=== PATIENT | female | born 1945 | race Caucasian/White ===

== ENCOUNTER 2019-02-09 03:16 | Outpatient (CLI) | payer MEDICARE | END 2019-02-09 23:59 | disposition home or self-care (01) | LOC: RT 03:16 | PROVIDERS: ATTEND Family Medicine | DX: J43.9 Emphysema, unspecified (principal); E78.5 Hyperlipidemia, unspecified; I48.91 Unspecified atrial fibrillation; K21.9 Gastro-esophageal reflux disease without esophagitis; I11.0 Hypertensive heart disease with heart failure; I50.9 Heart failure, unspecified; G30.9 Alzheimer's disease, unspecified; E07.89 Other specified disorders of thyroid; M81.0 Age-related osteoporosis without current pathological fracture; F32.9 Major depressive disorder, single episode, unspecified; F41.9 Anxiety disorder, unspecified; F02.80 Dementia in other diseases classified elsewhere, unspecified severity, without behavioral disturbance, psychotic disturbance, mood disturbance, and anxiety; F17.210 Nicotine dependence, cigarettes, uncomplicated; Z86.718 Personal history of other venous thrombosis and embolism; Z86.73 Personal history of transient ischemic attack (TIA), and cerebral infarction without residual deficits; Z79.899 Other long term (current) drug therapy; Z88.0 Allergy status to penicillin; Z88.5 Allergy status to narcotic agent; Z88.8 Allergy status to other drugs, medicaments and biological substances | CPT/HCPCS: 94618 ==

== ENCOUNTER 2019-03-11 11:29 | Outpatient (CLI) | payer MEDICARE, MEDICAID ==
[2019-03-11] VITALS (24 sets, daily range): BP systolic 115–177; BP diastolic 55–76
== END 2019-03-11 23:59 | disposition home or self-care (01) ==
LOC: CARD DIAG 11:29
PROVIDERS: ATTEND Internal Medicine Cardiovascular Disease
DX: R42 Dizziness and giddiness (principal)
CPT/HCPCS: 93660

== ENCOUNTER 2019-04-15 09:26 | Outpatient (CLI) | payer MEDICARE, MEDICAID ==
[2019-04-15 10:08] LABS: CLARITY,URINE CLOUDY (Clear); COLOR,URINE YELLOW (Yellow); GLUCOSE, URINE NEGATIVE (Neg); KETONES,URINE NEGATIVE (Neg); LEUKOCYTE ESTERASE ,URINE NEGATIVE (Neg); NITRITES, URINE NEGATIVE (Neg); OCCULT BLOOD,URINE NEGATIVE (Neg); PROTEIN,URINE NEGATIVE (Neg)
[2019-04-15 10:10] LABS: BASOPHILS # (AUTO) 0.1 X10'3 (0-0.2); EOSINOPHILS # (AUTO) 0.2 X10'3 (0-0.9); EOSINOPHILS % (AUTO) 3.3 % (0-6); HEMOGLOBIN 14.3 g/dl (12.0-16.0); LYMPHOCYTES # (AUTO) 1.9 X10'3 (1.1-4.8); LYMPHOCYTES % (AUTO) 29.9 % (21-51); MEAN CORPUSCULAR HEMOGLOBIN 29.1 PG (27.0-31.0); MEAN CORPUSCULAR HGB CONC 33.1 g/dL (33.0-36.5); MEAN CORPUSCULAR VOLUME 87.9 FL (78-98); MEAN PLATELET VOLUME 8.1 FL (7.4-10.4); MONOCYTES # (AUTO) 0.4 X10'3 (0-0.9); MONOCYTES % (AUTO) 6.9 % (2-12); NEUTROPHILS # (AUTO) 3.8 X10'3 (1.8-7.7); NEUTROPHILS % (AUTO) 58.9 % (42-75); PLATELET COUNT 246 X10'3 (140-440); RED BLOOD COUNT 4.89 X10'6 (4.20-5.60); RED CELL DISTRIBUTION WIDTH 15.6 % (11.5-14.5); WHITE BLOOD COUNT 6.5 X10'3 (4.5-11.0)
[2019-04-15 10:12] LABS: UA COLLECTION TYPE CLN CATCH MIDSTREAM
[2019-04-15 10:14] LABS: WBC,URINE 0-4 /HPF (0-4)
[2019-04-15 10:16] LABS: BACTERIA,URINE 1+ /HPF (Neg); MUCUS STRANDS MANY /LPF (Neg); RBC,URINE NONE SEEN /HPF (0-2); SQUAMOUS EPITHELIAL CELL,UR MANY /LPF (FEW); YEAST FEW /HPF (NEGATIVE)
[2019-04-15 10:27] LABS: ALANINE AMINOTRANSFERASE 26 U/L (12-78); ALBUMIN 3.6 G/DL (3.4-5.0); ALBUMIN/GLOBULIN RATIO 1.1 (1.1-1.5); ALKALINE PHOSPHATASE 67 IU/L (46-116); ANION GAP 4 (8-16); ASPARTATE AMINO TRANSFERASE 15 U/L (10-37); BILIRUBIN,TOTAL 0.7 MG/DL (0.1-1.0); BLOOD UREA NITROGEN 15 MG/DL (7-18); BUN/CREATININE RATIO 15.3 (6.6-38.0); CALCIUM 9.2 MG/DL (8.5-10.1); CHLORIDE 107 MMOL/L (99-107); CHOLESTEROL 151 MG/DL (0-200); CREATININE 0.98 MG/DL (0.40-0.90); GLUCOSE 98 MG/DL (70-104); HDL CHOLESTEROL 75 MG/DL (35-60); LDL CHOLESTEROL 63 MG/DL (50-100); POTASSIUM 3.9 MMOL/L (3.5-5.1); SODIUM 147 MMOL/L (135-145); TOTAL CARBON DIOXIDE 36.3 MMOL/L (24-32); TOTAL PROTEIN 6.9 G/DL (6.4-8.2); TRIGLYCERIDES 100 MG/DL (20-135); eGFR 55 ML/MIN
== END 2019-04-15 23:59 | disposition home or self-care (01) ==
LOC: LAB 09:26
PROVIDERS: ATTEND Family Medicine
DX: K58.0 Irritable bowel syndrome with diarrhea (principal); G89.29 Other chronic pain; M54.5 Low back pain; J44.9 Chronic obstructive pulmonary disease, unspecified; G45.9 Transient cerebral ischemic attack, unspecified; K21.9 Gastro-esophageal reflux disease without esophagitis
CPT/HCPCS: 36415; 80053; 80061; 81001; 84439; 84443; 85025

== ENCOUNTER 2019-08-06 11:27 | Outpatient (CLI) | payer MEDICARE, MEDICAID | END 2019-08-06 23:59 | disposition home or self-care (01) | LOC: RAD 11:27 | PROVIDERS: ATTEND Family Medicine | DX: K59.00 Constipation, unspecified (principal); R10.11 Right upper quadrant pain; R19.00 Intra-abdominal and pelvic swelling, mass and lump, unspecified site; Z90.49 Acquired absence of other specified parts of digestive tract | CPT/HCPCS: 76700 ==

== ENCOUNTER 2020-02-02 08:13 | Day surgery (SDC) | payer MEDICARE, MEDICAID ==
[2020-02-01 10:29] LABS: BASOPHILS # (AUTO) 0.1 X10'3 (0-0.2); BASOPHILS % (AUTO) 1.2 % (0-1); EOSINOPHILS # (AUTO) 0.2 X10'3 (0-0.9); EOSINOPHILS % (AUTO) 2.8 % (0-6); HEMOGLOBIN 13.1 g/dl (12.0-16.0); LYMPHOCYTES # (AUTO) 1.7 X10'3 (1.1-4.8); LYMPHOCYTES % (AUTO) 28.6 % (21-51); MEAN CORPUSCULAR HEMOGLOBIN 29.6 PG (27.0-31.0); MEAN CORPUSCULAR HGB CONC 32.6 g/dL (33.0-36.5); MEAN CORPUSCULAR VOLUME 90.6 FL (78-98); MEAN PLATELET VOLUME 7.9 FL (7.4-10.4); MONOCYTES # (AUTO) 0.5 X10'3 (0-0.9); MONOCYTES % (AUTO) 7.7 % (2-12); NEUTROPHILS # (AUTO) 3.6 X10'3 (1.8-7.7); NEUTROPHILS % (AUTO) 59.7 % (42-75); PLATELET COUNT 189 X10'3 (140-440); RED BLOOD COUNT 4.42 X10'6 (4.20-5.60); RED CELL DISTRIBUTION WIDTH 14.6 % (11.5-14.5)
[2020-02-01 10:35] LABS: ALBUMIN 3.3 G/DL (3.4-5.0); ANION GAP 2 (8-16); BLOOD UREA NITROGEN 12 MG/DL (7-18); BUN/CREATININE RATIO 15.2 (6.6-38.0); CALCIUM 8.7 MG/DL (8.5-10.1); CHLORIDE 105 MMOL/L (99-107); CREATININE 0.79 MG/DL (0.40-0.90); GLUCOSE 106 MG/DL (70-104); POTASSIUM 3.8 MMOL/L (3.5-5.1); SODIUM 142 MMOL/L (135-145); TOTAL CARBON DIOXIDE 34.6 MMOL/L (24-32); eGFR 71 ML/MIN
[2020-02-01 10:39] LABS: PARTIAL THROMBOPLASTIN TIME 25 SECONDS (22-32)
[~2020-02-02] VITALS: Ht 154.9 cm; Wt 81.0 kg
[2020-02-02] VITALS (11 sets, daily range): BP systolic 123–165; BP diastolic 52–84
[2020-02-02] MEDS ORDERED: normal saline 1,000 ML IV SCH (08:45)
[2020-02-02] MEDS ORDERED: vancomycin/NS 1 GM ADD-VANTAGE 250 ML X 1 DOSE IV ONE (08:50)
[2020-02-02] MEDS ORDERED: CLINDAMYCIN/D5W 900mg/50ml 50 ML IV ONE (08:50)
[2020-02-02] MEDS ORDERED: LACT1CAP65 PO (10:33)
[2020-02-02] MEDS ORDERED: DULO60CA45 PO (10:33)
[2020-02-02] MEDS ORDERED: [UNRECOGNIZED DRUG - CODE] PO (10:33)
[2020-02-02] MEDS ORDERED: UMEC1DIS INH (10:33)
[2020-02-02] MEDS ORDERED: OXYC-150 PO (10:33)
[2020-02-02] MEDS ORDERED: LEVO25TA7 PO (10:33)
[2020-02-02] MEDS ORDERED: DONE10TA44 PO (10:33)
[2020-02-02] MEDS ORDERED: BUSP10TA10 PO (10:33)
[2020-02-02] MEDS ORDERED: GABA300C PO (10:33)
[2020-02-02] MEDS ORDERED: DONE10TA7 PO (10:33)
[2020-02-02] MEDS ORDERED: LOPE2CAP PO (10:33)
[2020-02-02] MEDS ORDERED: BUDE0.5A3 NEB (10:33)
[2020-02-02] MEDS ORDERED: PANT-47 PO (10:33)
[2020-02-02] MEDS ORDERED: CLOP75TA33 PO (10:33)
[2020-02-02] MEDS ORDERED: ATOR40TA71 PO (10:33)
[2020-02-02] MEDS ORDERED: DICY20TA11 PO (10:33)
[2020-02-02] MEDS ORDERED: PRED5TAB PO (10:33)
[2020-02-02] MEDS ORDERED: MEMA10TA PO (10:33)
[2020-02-02] MEDS ORDERED: AMLO5TAB PO (10:33)
[2020-02-02] MEDS ORDERED: LISI10TA PO (10:33)
[2020-02-02] MEDS ORDERED: ALBU18HF2 IH (10:33)
[2020-02-02] MEDS ORDERED: MAGN400T52 PO (10:33)
[2020-02-02] MEDS ORDERED: midazolam 2 mg/2 ml injection ONE ×2 (13:16→13:53)
[2020-02-02] MEDS ORDERED: ceFAZolin/D5W- 1GM premix 50 ML IV ONE (13:16)
[2020-02-02] MEDS ORDERED: fentaNYL/PF 50MCG/1 ML 2ML syringe ONE ×2 (13:16→14:06)
[2020-02-02] MEDS ORDERED: clindamycin phosphate 150mg/ml inj. ONE (13:19)
[2020-02-02] MEDS ORDERED: LIDOcaine 1% W/epiNEPHrine 1:100,000 20ml vial ONE ×2 (13:23→13:59)
[2020-02-02] MEDS ORDERED: normal saline 1,000 ML IV ONE (15:53)
[2020-02-02] MEDS ORDERED: HYDROcodone/acetaminophen 10/325mg tab PO PRN (15:55)
[2020-02-02] MEDS ORDERED: HYDROcodone/acetaminophen 5mg/325mg tablet PO PRN (15:55)
== END 2020-02-02 19:30 | disposition home or self-care (01) ==
LOC: SSTAY O 08:13
PROVIDERS: ATTEND Internal Medicine Cardiovascular Disease
DX: I49.5 Sick sinus syndrome (principal); I50.9 Heart failure, unspecified; I11.0 Hypertensive heart disease with heart failure; E78.5 Hyperlipidemia, unspecified; G47.30 Sleep apnea, unspecified; I48.0 Paroxysmal atrial fibrillation; F32.9 Major depressive disorder, single episode, unspecified; F41.9 Anxiety disorder, unspecified; E03.9 Hypothyroidism, unspecified; F03.90 Unspecified dementia, unspecified severity, without behavioral disturbance, psychotic disturbance, mood disturbance, and anxiety; M13.88 Other specified arthritis, other site; J44.9 Chronic obstructive pulmonary disease, unspecified; Z79.899 Other long term (current) drug therapy; Z86.73 Personal history of transient ischemic attack (TIA), and cerebral infarction without residual deficits; Z86.718 Personal history of other venous thrombosis and embolism; Z98.890 Other specified postprocedural states; Z90.49 Acquired absence of other specified parts of digestive tract; Z98.51 Tubal ligation status; Z87.891 Personal history of nicotine dependence; Z88.0 Allergy status to penicillin; Z88.8 Allergy status to other drugs, medicaments and biological substances; Z88.5 Allergy status to narcotic agent
CPT/HCPCS: 33208; 33286; 36415; 71046; 80048; 85025; 85610; 85730; 93005; 99152; 99153; C1785; C1894; C1898; J0690; J2250; J3010; J3490; A4565; A4620; A6258; A6449

== ENCOUNTER 2020-02-29 15:20 | Outpatient (CLI) | payer MEDICARE, MEDICAID ==
[~2020-02-29 15:20] MED LIST: ALBU18HF2 IH; AMLO5TAB PO; ATOR40TA71 PO; BUDE0.5A3 NEB; BUSP10TA10 PO; CLOP75TA33 PO; DICY20TA11 PO; DONE10TA44 PO; DONE10TA7 PO; DULO60CA45 PO; GABA300C PO; LACT1CAP65 PO; LEVO25TA7 PO; LISI10TA PO; LOPE2CAP PO; MAGN400T52 PO; MEMA10TA PO; OXYC-150 PO; PANT-47 PO; PRED5TAB PO; UMEC1DIS INH; [UNRECOGNIZED DRUG - CODE] PO
== END 2020-02-29 23:59 | disposition home or self-care (01) ==
LOC: RAD 15:20
PROVIDERS: ATTEND Internal Medicine Cardiovascular Disease
DX: I50.22 Chronic systolic (congestive) heart failure (principal)
CPT/HCPCS: 71046

== ENCOUNTER 2020-10-23 18:22 | Emergency (ER) | payer MEDICARE, MEDICAID ==
[~2020-10-23] VITALS: Ht 154.9 cm; Wt 83.2 kg
[2020-10-23 19:06] LABS: BASOPHILS % (AUTO) 0.3 % (0-1); EOSINOPHILS % (AUTO) 0 % (0-6); HEMATOCRIT 40.4 % (35.0-45.0); HEMOGLOBIN 13.3 g/dl (12.0-16.0); LYMPHOCYTES # (AUTO) 0.4 X10'3 (1.1-4.8); LYMPHOCYTES % (AUTO) 10.4 % (21-51); MEAN CORPUSCULAR HEMOGLOBIN 30.7 PG (27.0-31.0); MEAN PLATELET VOLUME 8.6 FL (7.4-10.4); MONOCYTES # (AUTO) 0.1 X10'3 (0-0.9); MONOCYTES % (AUTO) 1.3 % (2-12); NEUTROPHILS # (AUTO) 3.6 X10'3 (1.8-7.7); PLATELET COUNT 221 X10'3 (140-440); RED BLOOD COUNT 4.35 X10'6 (4.20-5.60); RED CELL DISTRIBUTION WIDTH 14.1 % (11.5-14.5); WHITE BLOOD COUNT 4.1 X10'3 (4.5-11.0)
[2020-10-23 19:08] LABS: PARTIAL THROMBOPLASTIN TIME 25 SECONDS (22-32)
[2020-10-23 19:11] LABS: ALANINE AMINOTRANSFERASE 61 U/L (12-78); ALBUMIN 3.9 G/DL (3.4-5.0); ALBUMIN/GLOBULIN RATIO 1.2 (1.1-1.5); ALKALINE PHOSPHATASE 84 IU/L (46-116); ANION GAP 12 (8-16); ASPARTATE AMINO TRANSFERASE 26 U/L (10-37); BILIRUBIN,TOTAL 0.6 MG/DL (0.1-1.0); BLOOD UREA NITROGEN 19 MG/DL (7-18); BUN/CREATININE RATIO 15.8 (6.6-38.0); CALCIUM 9.5 MG/DL (8.5-10.1); CHLORIDE 103 MMOL/L (99-107); GLUCOSE 194 MG/DL (70-104); SODIUM 146 MMOL/L (135-145); TOTAL CARBON DIOXIDE 31.4 MMOL/L (24-32); TOTAL PROTEIN 7.2 G/DL (6.4-8.2); eGFR 44 ML/MIN
[2020-10-23 19:14] LABS: TROPONIN I < 0.04 NG/ML (0.0-0.05)
--- NOTE | 2020-10-23 20:35 | NUR ---
PT AMBULATED TO RESTROOM AND BACK TO BED USING FWW WITHOUT ASSIST
[2020-10-23 21:03] LABS: CLARITY,URINE SLIGHTLY CLOUDY (Clear); COLOR,URINE YELLOW (Yellow); GLUCOSE, URINE NEGATIVE (Neg); KETONES,URINE NEGATIVE (Neg); LEUKOCYTE ESTERASE ,URINE MODERATE (Neg); NITRITES, URINE NEGATIVE (Neg); OCCULT BLOOD,URINE TRACE-INTACT (Neg); PROTEIN,URINE NEGATIVE (Neg); UROBILINOGEN,URINE 0.2 E.U/dL (0.2-1.0)
[2020-10-23 21:06] LABS: UA COLLECTION TYPE CLN CATCH MIDSTREAM
[2020-10-23 21:11] LABS: BACTERIA,URINE 3+ /HPF (Neg); MUCUS STRANDS MANY /LPF (Neg); SQUAMOUS EPITHELIAL CELL,UR FEW /LPF (FEW); WBC,URINE TNTC /HPF (0-4)
[2020-10-23 21:12] LABS: TRANSITIONAL EPI CELLS,URINE FEW /HPF
[2020-10-23] MEDS ORDERED: cephalexin 500mg capsule PO ONE (21:50)
[2020-10-23] MEDS ORDERED: CEPH-585 PO (21:52)
[2020-10-23 22:08] VITALS: BP 160/88
== END 2020-10-23 22:11 | disposition home or self-care (01) ==
LOC: ER 18:24
DX: N39.0 Urinary tract infection, site not specified (principal); R25.1 Tremor, unspecified; R30.0 Dysuria; Q89.8 Other specified congenital malformations; I10 Essential (primary) hypertension; J43.9 Emphysema, unspecified; Z87.440 Personal history of urinary (tract) infections; G89.29 Other chronic pain; F17.200 Nicotine dependence, unspecified, uncomplicated; Z95.0 Presence of cardiac pacemaker; Z72.89 Other problems related to lifestyle; Z88.0 Allergy status to penicillin; Z88.5 Allergy status to narcotic agent; Z88.8 Allergy status to other drugs, medicaments and biological substances; Z79.2 Long term (current) use of antibiotics; Z79.899 Other long term (current) drug therapy
CPT/HCPCS: 36415; 70450; 71045; 80053; 81001; 82948; 84484; 85025; 85610; 85730; 87088; 93005; 99285

== ENCOUNTER 2021-04-12 12:49 | Emergency (ER) | payer MEDICARE, MEDICAID ==
[~2021-04-12] VITALS: Ht 154.9 cm; Wt 77.3 kg
[~2021-04-12 12:49] MED LIST changes: +CEPH-585 PO; -DULO60CA45 PO; +DULO60CA59 PO; +[UNRECOGNIZED DRUG - CODE] PO; -[UNRECOGNIZED DRUG - CODE] PO
[2021-04-12] MEDS ORDERED: acetaminophen 325mg tablet PO ONE ×2 (13:20→13:45)
[2021-04-12] MEDS ORDERED: normal saline 1000ML IV soln IV ONE (14:30)
[2021-04-12 15:11] LABS: BASOPHILS # (AUTO) 0.1 X10'3 (0-0.2); BASOPHILS % (AUTO) 0.8 % (0-1); EOSINOPHILS % (AUTO) 0.3 % (0-6); HEMOGLOBIN 11.7 g/dl (12.0-16.0); LYMPHOCYTES # (AUTO) 1.1 X10'3 (1.1-4.8); LYMPHOCYTES % (AUTO) 14.1 % (21-51); MEAN CORPUSCULAR HEMOGLOBIN 29.9 PG (27.0-31.0); MEAN CORPUSCULAR HGB CONC 33.4 g/dL (33.0-36.5); MEAN CORPUSCULAR VOLUME 89.6 FL (78-98); MEAN PLATELET VOLUME 8.1 FL (7.4-10.4); MONOCYTES # (AUTO) 0.8 X10'3 (0-0.9); NEUTROPHILS # (AUTO) 5.6 X10'3 (1.8-7.7); NEUTROPHILS % (AUTO) 73.8 % (42-75); PLATELET COUNT 165 X10'3 (140-440); RED BLOOD COUNT 3.91 X10'6 (4.20-5.60); RED CELL DISTRIBUTION WIDTH 15.8 % (11.5-14.5); WHITE BLOOD COUNT 7.5 X10'3 (4.5-11.0)
[2021-04-12 15:38] LABS: ALANINE AMINOTRANSFERASE 18 U/L (12-78); ALBUMIN 3.4 G/DL (3.4-5.0); ALBUMIN/GLOBULIN RATIO 1.3 (1.1-1.5); ANION GAP 8 (8-16); ASPARTATE AMINO TRANSFERASE 15 U/L (10-37); BILIRUBIN,TOTAL 0.5 MG/DL (0.1-1.0); BLOOD UREA NITROGEN 19 MG/DL (7-18); CALCIUM 8.6 MG/DL (8.5-10.1); CHLORIDE 108 MMOL/L (99-107); CREATININE 1.12 MG/DL (0.40-0.90); GLUCOSE 116 MG/DL (70-104); MAGNESIUM 2.1 MG/DL (1.5-2.4); POTASSIUM 3.5 MMOL/L (3.5-5.1); SODIUM 145 MMOL/L (135-145); TOTAL CARBON DIOXIDE 29.1 MMOL/L (24-32); eGFR 47 ML/MIN
[2021-04-12 16:16] LABS: ALKALINE PHOSPHATASE 49 IU/L (46-116)
[2021-04-12] MEDS ORDERED: CASIRIVIMAB/IMDEVIMAB inject. 10 ML in normal saline 100ml IV soln 100 ML IV ONE (16:20)
--- NOTE | 2021-04-12 19:02 | NUR ---
INFUSION COOMPLETE. 1 HOUR OBSERVATION PERIOD. PT RESTING W/ EYES CLOSED. VITALS WNL.
[2021-04-12 20:27] VITALS: BP 135/55
[2021-04-13] MEDS ORDERED: CHOL4PAC2 PO (17:34)
[2021-04-13] MEDS ORDERED: POLY17PO59 PO (17:34)
[2021-04-13] MEDS ORDERED: CRAN450T4 PO (17:34)
[2021-04-13] MEDS ORDERED: FURO20TA4 PO (17:34)
[2021-04-13] MEDS ORDERED: CHOL500050 PO (17:34)
[2021-04-13] MEDS ORDERED: ACET-1084 PO (17:34)
== END 2021-04-12 20:31 | disposition home or self-care (01) ==
LOC: EDBD → ER 12:50
DX: U07.1 COVID-19 (principal); R06.02 Shortness of breath; R05.9 Cough, unspecified; R50.9 Fever, unspecified; J43.9 Emphysema, unspecified; I10 Essential (primary) hypertension; G89.29 Other chronic pain; F17.200 Nicotine dependence, unspecified, uncomplicated; Z87.440 Personal history of urinary (tract) infections; Z95.0 Presence of cardiac pacemaker; Z72.89 Other problems related to lifestyle; Z88.0 Allergy status to penicillin; Z88.5 Allergy status to narcotic agent; Z88.8 Allergy status to other drugs, medicaments and biological substances; Z79.2 Long term (current) use of antibiotics; Z79.899 Other long term (current) drug therapy
CPT/HCPCS: 99285; J7030; M0243; Q0244; 36415; 71045; 80053; 83605; 83735; 84145; 85025; 87040

== ENCOUNTER 2021-04-13 14:32 | Inpatient (IN) | payer MEDICARE, MEDICAID ==
[~2021-04-13] VITALS: Ht 154.9 cm; Wt 90.0 kg
[2021-04-13] MEDS ORDERED: acetaminophen 325mg tablet PO STA (15:33)
[2021-04-13] MEDS ORDERED: normal saline 1000ML IV soln IV ONE (15:35)
[2021-04-13 15:50] LABS: BASOPHILS # (AUTO) 0.1 X10'3 (0-0.2); BASOPHILS % (AUTO) 0.4 % (0-1); EOSINOPHILS % (AUTO) 0 % (0-6); HEMATOCRIT 39.2 % (35.0-45.0); HEMOGLOBIN 12.7 g/dl (12.0-16.0); MEAN CORPUSCULAR HEMOGLOBIN 29.5 PG (27.0-31.0); MEAN CORPUSCULAR HGB CONC 32.5 g/dL (33.0-36.5); MEAN CORPUSCULAR VOLUME 90.9 FL (78-98); MEAN PLATELET VOLUME 8.7 FL (7.4-10.4); MONOCYTES # (AUTO) 0.7 X10'3 (0-0.9); MONOCYTES % (AUTO) 4.3 % (2-12); NEUTROPHILS # (AUTO) 12.8 X10'3 (1.8-7.7); NEUTROPHILS % (AUTO) 82.3 % (42-75); PLATELET COUNT 170 X10'3 (140-440); RED BLOOD COUNT 4.31 X10'6 (4.20-5.60); RED CELL DISTRIBUTION WIDTH 15.6 % (11.5-14.5); WHITE BLOOD COUNT 15.6 X10'3 (4.5-11.0)
[2021-04-13 15:59] LABS: ANION GAP 10 (8-16); CHLORIDE 105 MMOL/L (99-107); POTASSIUM 3.5 MMOL/L (3.5-5.1); SODIUM 147 MMOL/L (135-145); TOTAL CARBON DIOXIDE 31.6 MMOL/L (24-32)
[2021-04-13 16:01] LABS: D-DIMER 0.87 MG/L FEU (0-0.50)
--- NOTE | 2021-04-13 16:19 | NUR ---
[facility] [phone]
[2021-04-13] MEDS ORDERED: iohexol 350MG/ML 100ml bottle IV ONE (16:24)
[2021-04-13 16:27] LABS: ALANINE AMINOTRANSFERASE 32 U/L (12-78); ALBUMIN 3.7 G/DL (3.4-5.0); ALBUMIN/GLOBULIN RATIO 1.1 (1.1-1.5); ASPARTATE AMINO TRANSFERASE 33 U/L (10-37); BILIRUBIN,TOTAL 0.9 MG/DL (0.1-1.0); BLOOD UREA NITROGEN 13 MG/DL (7-18); BUN/CREATININE RATIO 12.7 (6.6-38.0); CALCIUM 8.4 MG/DL (8.5-10.1); CREATININE 1.02 MG/DL (0.40-0.90); GLUCOSE 213 MG/DL (70-104); MAGNESIUM 2.1 MG/DL (1.5-2.4); TOTAL PROTEIN 7.1 G/DL (6.4-8.2); eGFR 53 ML/MIN
[2021-04-13 16:31] LABS: ALKALINE PHOSPHATASE 61 IU/L (46-116)
[2021-04-13 16:41] LABS: CLARITY,URINE CLEAR (Clear); COLOR,URINE STRAW (Yellow); GLUCOSE, URINE 250 mg/dl (Neg); KETONES,URINE 40 mg/dl (Neg); PROTEIN,URINE 30 mg/dl (Neg); UA COLLECTION TYPE CLN CATCH MIDSTREAM
[2021-04-13 16:42] LABS: LEUKOCYTE ESTERASE ,URINE NEGATIVE (Neg); NITRITES, URINE NEGATIVE (Neg); OCCULT BLOOD,URINE MODERATE (Neg); UROBILINOGEN,URINE 0.2 E.U/dL (0.2-1.0)
[2021-04-13 17:00] LABS: SQUAMOUS EPITHELIAL CELL,UR FEW /LPF (FEW)
[2021-04-13 17:01] LABS: BACTERIA,URINE 2+ /HPF (Neg); RBC,URINE 0-2 /HPF (0-2); WBC,URINE 0-4 /HPF (0-4); YEAST FEW /HPF (NEGATIVE)
[2021-04-13] MEDS ORDERED: CHOL4PAC2 PO (17:34)
[2021-04-13] MEDS ORDERED: FURO20TA4 PO (17:34)
[2021-04-13] MEDS ORDERED: POLY17PO59 PO (17:34)
[2021-04-13] MEDS ORDERED: CRAN450T4 PO (17:34)
[2021-04-13] MEDS ORDERED: CHOL500050 PO (17:34)
[2021-04-13] MEDS ORDERED: ACET-1084 PO (17:34)
[2021-04-13] MEDS ORDERED: levoFLOXACIN-Levaquin 750MG/D5 150 ML IV ONE (17:40)
[2021-04-13] MEDS ORDERED: dexamethasone sod phosphate 10mg/ml inj IM STA (17:53)
[2021-04-13] MEDS ORDERED: ALBUTEROL INHALER 1 PUFF/90 MCG INHALER IH PRN (17:55)
[2021-04-13] MEDS ORDERED: magnesium 4gm in 100ml NS 100 ML IV PRN (18:00)
[2021-04-13] MEDS ORDERED: mag hydrox/Alum hydrox/simeth 30ml oral suspension PO PRN (18:00)
[2021-04-13] MEDS ORDERED: ondansetron/PF 4mg/2ml inj IV PRN (18:00)
[2021-04-13] MEDS ORDERED: potassium Cl 40MEQ/1/2NS 520ml 520 ML IV PRN ×2 (18:00)
[2021-04-13] MEDS ORDERED: magnesium hydroxide 30ml (MOM) UD suspension PO PRN (18:00)
[2021-04-13] MEDS ORDERED: metoclopramide 5 mg/ml inj IV PRN (18:00)
[2021-04-13] MEDS ORDERED: potassium Cl 20 mEq SR tablet PO PRN ×2 (18:00)
[2021-04-13] MEDS ORDERED: acetaminophen 325mg tablet PO PRN (18:00)
[2021-04-13] MEDS ORDERED: magnesium Cl slow-release 64mg tablet PO PRN (18:00)
[2021-04-13] MEDS ORDERED: HYDROcodone/acetaminophen 5mg/325mg tablet PO PRN (18:00)
[2021-04-13] MEDS ORDERED: morphine 2 MG/ML inj. syringe IV PRN ×2 (18:00)
[2021-04-13] MEDS ORDERED: magnesium 2GM in 50ml NS 50 ML IV PRN (18:00)
[2021-04-13] MEDS ORDERED: REMDESIVIR INJ 200 MG in normal saline 100ml IV soln 60 ML IV ONE (18:05)
--- NOTE | 2021-04-13 18:55 | NUR ---
PT TURNED TO PRONE POSITION. PT IS MANAGING POSITION WELL.
[2021-04-13] MEDS: K and/or MAG REPLACEMENT MC SCH (20:00)
[2021-04-13 20:05] LABS: C-REACTIVE PROTEIN 13.54 MG/DL (0.0-0.5)
--- NOTE | 2021-04-13 20:19 | NUR ---
CALLED DR ARCE CONCERNING PT'S CRITICAL TROPONIN. DR ARCE AWARE
[2021-04-13] MEDS: normal saline 1000ml 1,000 ML IV SCH (20:22)
[2021-04-13] MEDS: docusate sod 100mg capsule PO SCH (20:44)
[2021-04-13] MEDS: donepezil 5mg tablet PO SCH (20:44)
[2021-04-13] MEDS: gabapentin 300mg capsule PO SCH (20:45)
[2021-04-13] MEDS: memantine 5mg tablet PO SCH (20:45)
[2021-04-13] MEDS: busPIRone 5mg tablet PO SCH (20:47)
[2021-04-13] MEDS: HYDROcodone/acetaminophen 10/325mg tab PO PRN (20:49)
[2021-04-13] MEDS: dexamethasone inj 6 MG in normal saline 50ml IV soln 50 ML IV SCH (23:20)
[2021-04-14] MEDS: HYDROcodone/acetaminophen 10/325mg tab PO PRN ×4 (01:14→20:23)
[2021-04-14] MEDS: normal saline 1000ml 1,000 ML IV SCH ×2 (04:26→14:54)
[2021-04-14 05:25] LABS: BASOPHILS % (AUTO) 0.1 % (0-1); EOSINOPHILS % (AUTO) 0 % (0-6); HEMATOCRIT 34.1 % (35.0-45.0); HEMOGLOBIN 11.4 g/dl (12.0-16.0); LYMPHOCYTES # (AUTO) 0.4 X10'3 (1.1-4.8); LYMPHOCYTES % (AUTO) 4.2 % (21-51); MEAN CORPUSCULAR HEMOGLOBIN 30.1 PG (27.0-31.0); MEAN CORPUSCULAR HGB CONC 33.3 g/dL (33.0-36.5); MEAN CORPUSCULAR VOLUME 90.5 FL (78-98); MEAN PLATELET VOLUME 8.3 FL (7.4-10.4); MONOCYTES # (AUTO) 0.1 X10'3 (0-0.9); MONOCYTES % (AUTO) 1.6 % (2-12); NEUTROPHILS # (AUTO) 8.1 X10'3 (1.8-7.7); NEUTROPHILS % (AUTO) 94.1 % (42-75); PLATELET COUNT 135 X10'3 (140-440); RED BLOOD COUNT 3.77 X10'6 (4.20-5.60); RED CELL DISTRIBUTION WIDTH 15.4 % (11.5-14.5); WHITE BLOOD COUNT 8.6 X10'3 (4.5-11.0)
[2021-04-14 05:41] LABS: D-DIMER 0.57 MG/L FEU (0-0.50)
[2021-04-14 05:46] LABS: ALANINE AMINOTRANSFERASE 26 U/L (12-78); ALBUMIN 2.8 G/DL (3.4-5.0); ALBUMIN/GLOBULIN RATIO 0.8 (1.1-1.5); ALKALINE PHOSPHATASE 48 IU/L (46-116); ANION GAP 10 (8-16); ASPARTATE AMINO TRANSFERASE 26 U/L (10-37); BILIRUBIN,TOTAL 0.5 MG/DL (0.1-1.0); BLOOD UREA NITROGEN 11 MG/DL (7-18); BUN/CREATININE RATIO 13.9 (6.6-38.0); CALCIUM 7.8 MG/DL (8.5-10.1); CHLORIDE 108 MMOL/L (99-107); CREATININE 0.79 MG/DL (0.40-0.90); GLUCOSE 134 MG/DL (70-104); POTASSIUM 3.7 MMOL/L (3.5-5.1); SODIUM 146 MMOL/L (135-145); TOTAL PROTEIN 6.2 G/DL (6.4-8.2); eGFR 71 ML/MIN
[2021-04-14 05:54] LABS: C-REACTIVE PROTEIN 20.96 MG/DL (0.0-0.5); LACTATE DEHYDROGENASE 266 U/L (81-234); MAGNESIUM 2.1 MG/DL (1.5-2.4); PHOSPHORUS 1.7 MG/DL (2.3-4.5)
[2021-04-14] MEDS: gabapentin 300mg capsule PO SCH ×2 (07:39→19:36)
[2021-04-14] MEDS: lactobacillus rhamnosus 10,000 MMU CELLS/CAPSULE PO SCH (07:40)
[2021-04-14] MEDS: levoTHYROXINE 25mcg tablet PO SCH (07:40)
[2021-04-14] MEDS: furosemide 20MG tablet PO SCH (07:41)
[2021-04-14] MEDS: pantoprazole 40mg Tablet.DR PO SCH (07:41)
[2021-04-14] MEDS: donepezil 5mg tablet PO SCH ×2 (07:41→19:36)
[2021-04-14] MEDS: clopidogrel 75mg tablet PO SCH (07:42)
[2021-04-14] MEDS: dexamethasone inj 6 MG in normal saline 50ml IV soln 50 ML IV SCH ×2 (07:42→19:35)
[2021-04-14] MEDS: dicyclomine 10 MG capsule PO SCH (07:42)
[2021-04-14] MEDS: busPIRone 5mg tablet PO SCH ×2 (07:42→19:36)
[2021-04-14] MEDS: duloxetine 30mg CAPSULE.DR PO SCH (07:42)
[2021-04-14] MEDS: amLODIPine 5mg tablet PO SCH (07:42)
[2021-04-14] MEDS: lisinopril 10 MG tablet PO SCH (07:43)
[2021-04-14] MEDS: memantine 5mg tablet PO SCH ×2 (07:43→19:36)
[2021-04-14] MEDS: docusate sod 100mg capsule PO SCH ×2 (07:43→19:28)
[2021-04-14] MEDS: enoxaparin 40mg/0.4ml syringe SUBCUT SCH (07:44)
[2021-04-14] MEDS: REMDESIVIR 100 MG in NS 100ml IVPB IV SCH (07:59)
[2021-04-14] MEDS ORDERED: REMDESIVIR INJ 100 MG in normal saline 100ml IV soln 80 ML IV SCH (08:00)
[2021-04-14] MEDS: ANORO ELLIPTA IH SCH (08:00)
[2021-04-14] MEDS: K and/or MAG REPLACEMENT MC SCH ×2 (08:00→19:27)
[2021-04-14] MEDS ORDERED: PERFLUTREN PROTEIN-A MICROSPHR (Optison) 0.22 MG/ML 3ML VIAL IV ONE (08:40)
--- NOTE | 2021-04-14 08:43 | NUR ---
pt sitting up in bed no distress noted, eating breakfast without difficulty.
--- NOTE | 2021-04-14 17:26 | NUR ---
Tech at bedside to preform Echo.
--- NOTE | 2021-04-14 18:24 | NUR ---
Report given to CHITO Holcomb in the Ortho unit.
--- NOTE | 2021-04-14 18:25 | NUR ---
Patient in room ED 8. I have received report from CHITO Jean and had the opportunity to ask questions and assume patient care.
[2021-04-14 19:02] VITALS: BP 172/56
[2021-04-14 22:00] VITALS: BP 119/47
[2021-04-14] MEDS: temazepam 15mg capsule PO PRN (22:56)
[2021-04-15 02:00] VITALS: BP 129/55
[2021-04-15] MEDS: normal saline 1000ml 1,000 ML IV SCH ×3 (02:34→19:48)
[2021-04-15] MEDS: HYDROcodone/acetaminophen 10/325mg tab PO PRN ×2 (05:41→18:13)
[2021-04-15 06:00] VITALS: BP 120/59
--- NOTE | 2021-04-15 06:33 | NUR ---
Patient in room ORTHO 4010B. I have received report from CHITO DELUNA and had the opportunity to ask questions and assume patient care.
--- NOTE | 2021-04-15 06:34 | NUR ---
Problems reprioritized. Patient report given, questions answered & plan of care reviewed with CHITO Taylor.
[2021-04-15] MEDS: levoTHYROXINE 25mcg tablet PO SCH (08:00)
[2021-04-15] MEDS: K and/or MAG REPLACEMENT MC SCH ×2 (08:00→19:48)
[2021-04-15] MEDS: docusate sod 100mg capsule PO SCH ×2 (08:00→19:42)
[2021-04-15] MEDS: ANORO ELLIPTA IH SCH (08:00)
--- NOTE | 2021-04-15 08:47 | NUR ---
Malnutrition consult: Pt admitted w/ SOB and Covid PNA. Per ED note pt appears well developed and well nourished, comes from assisted living home. Per RN note, pt able to eat breakfast without difficulty. No recent scaled wt hx in EMR. No edema noted. At this time pt does not meet minimum criteria for malnutrition. Will continue to monitor. Addendum: 04/15/21 at [address] Amended: Links added.
[2021-04-15 08:48] LABS: BASOPHILS % (AUTO) 0 % (0-1); EOSINOPHILS % (AUTO) 0 % (0-6); HEMATOCRIT 30.9 % (35.0-45.0); HEMOGLOBIN 10.1 g/dl (12.0-16.0); LYMPHOCYTES # (AUTO) 0.3 X10'3 (1.1-4.8); LYMPHOCYTES % (AUTO) 3.4 % (21-51); MEAN CORPUSCULAR HEMOGLOBIN 29.8 PG (27.0-31.0); MEAN CORPUSCULAR HGB CONC 32.9 g/dL (33.0-36.5); MEAN CORPUSCULAR VOLUME 90.7 FL (78-98); MEAN PLATELET VOLUME 8.7 FL (7.4-10.4); MONOCYTES # (AUTO) 0.3 X10'3 (0-0.9); MONOCYTES % (AUTO) 2.8 % (2-12); NEUTROPHILS # (AUTO) 9.4 X10'3 (1.8-7.7); NEUTROPHILS % (AUTO) 93.8 % (42-75); PLATELET COUNT 147 X10'3 (140-440); RED CELL DISTRIBUTION WIDTH 15.6 % (11.5-14.5)
[2021-04-15 08:55] LABS: ALANINE AMINOTRANSFERASE 19 U/L (12-78); ALBUMIN 2.7 G/DL (3.4-5.0); ALBUMIN/GLOBULIN RATIO 0.9 (1.1-1.5); ALKALINE PHOSPHATASE 43 IU/L (46-116); ANION GAP 10 (8-16); ASPARTATE AMINO TRANSFERASE 22 U/L (10-37); BILIRUBIN,TOTAL 0.3 MG/DL (0.1-1.0); BLOOD UREA NITROGEN 27 MG/DL (7-18); BUN/CREATININE RATIO 32.5 (6.6-38.0); C-REACTIVE PROTEIN 10.95 MG/DL (0.0-0.5); CALCIUM 7.6 MG/DL (8.5-10.1); CHLORIDE 110 MMOL/L (99-107); CREATININE 0.83 MG/DL (0.40-0.90); GLUCOSE 176 MG/DL (70-104); LACTATE DEHYDROGENASE 303 U/L (81-234); MAGNESIUM 2.5 MG/DL (1.5-2.4); PHOSPHORUS 2.4 MG/DL (2.3-4.5); POTASSIUM 3.6 MMOL/L (3.5-5.1); SODIUM 145 MMOL/L (135-145); TOTAL CARBON DIOXIDE 25.5 MMOL/L (24-32); TOTAL PROTEIN 5.8 G/DL (6.4-8.2); eGFR 67 ML/MIN
[2021-04-15 09:14] LABS: D-DIMER 0.53 MG/L FEU (0-0.50)
[2021-04-15] MEDS: dexamethasone inj 6 MG in normal saline 50ml IV soln 50 ML IV SCH ×2 (09:14→19:34)
[2021-04-15] MEDS: enoxaparin 40mg/0.4ml syringe SUBCUT SCH (09:14)
[2021-04-15] MEDS: duloxetine 30mg CAPSULE.DR PO SCH (09:15)
[2021-04-15] MEDS: dicyclomine 10 MG capsule PO SCH (09:16)
[2021-04-15] MEDS: memantine 5mg tablet PO SCH ×2 (09:16→19:43)
[2021-04-15] MEDS: clopidogrel 75mg tablet PO SCH (09:16)
[2021-04-15] MEDS: pantoprazole 40mg Tablet.DR PO SCH (09:16)
[2021-04-15] MEDS: lactobacillus rhamnosus 10,000 MMU CELLS/CAPSULE PO SCH (09:16)
[2021-04-15] MEDS: gabapentin 300mg capsule PO SCH ×2 (09:17→19:41)
[2021-04-15] MEDS: donepezil 5mg tablet PO SCH ×2 (09:18→19:42)
[2021-04-15] MEDS: furosemide 20MG tablet PO SCH (09:18)
[2021-04-15] MEDS: amLODIPine 5mg tablet PO SCH (09:19)
[2021-04-15] MEDS: lisinopril 10 MG tablet PO SCH (09:19)
[2021-04-15] MEDS: busPIRone 5mg tablet PO SCH ×2 (09:21→19:42)
[2021-04-15 10:00] VITALS: BP 118/59
[2021-04-15] MEDS: REMDESIVIR 100 MG in NS 100ml IVPB IV SCH (10:05)
--- NOTE | 2021-04-15 15:59 | NUR ---
Page Sent PAGER ID: [phone] MESSAGE: NEYMAR [id number] RE: CAROLYN MCMAHON [phone] CAN I GET AN ORDER FOR TESSALON PERLES OR ROBITUSSIN FOR PT'S COUGH? THANK YOU!
[2021-04-15] MEDS: benzonatate 100mg capsule PO PRN (16:27)
[2021-04-15 18:00] VITALS: BP 132/48
--- NOTE | 2021-04-15 18:41 | NUR ---
Problems reprioritized. Patient report given, questions answered & plan of care reviewed with CHITO KRUEGER.
[2021-04-15 22:00] VITALS: BP 128/44
[2021-04-15] MEDS: temazepam 15mg capsule PO PRN (22:31)
[2021-04-16 02:00] VITALS: BP 105/38
--- NOTE | 2021-04-16 05:16 | NUR ---
Tele box called and said pts underlying rhythm is looking like afib. Will let day shift/Dr know.
[2021-04-16] MEDS: acetaminophen 325mg tablet PO PRN (05:56)
[2021-04-16 06:00] VITALS: BP 132/68
[2021-04-16] MEDS: normal saline 1000ml 1,000 ML IV SCH ×2 (06:00→16:41)
--- NOTE | 2021-04-16 06:13 | NUR ---
Patient in room ORTHO 4010B. I have received report from CHITO KRUEGER and had the opportunity to ask questions and assume patient care.
[2021-04-16] MEDS: dexamethasone inj 6 MG in normal saline 50ml IV soln 50 ML IV SCH ×2 (07:07→19:05)
[2021-04-16] MEDS: busPIRone 5mg tablet PO SCH ×2 (07:07→19:04)
[2021-04-16] MEDS: enoxaparin 40mg/0.4ml syringe SUBCUT SCH (07:07)
[2021-04-16] MEDS: furosemide 20MG tablet PO SCH (07:08)
[2021-04-16] MEDS: levoTHYROXINE 25mcg tablet PO SCH (07:08)
[2021-04-16] MEDS: clopidogrel 75mg tablet PO SCH (07:09)
[2021-04-16] MEDS: dicyclomine 10 MG capsule PO SCH (07:09)
[2021-04-16] MEDS: gabapentin 300mg capsule PO SCH ×2 (07:09→19:04)
[2021-04-16] MEDS: lactobacillus rhamnosus 10,000 MMU CELLS/CAPSULE PO SCH (07:09)
[2021-04-16] MEDS: duloxetine 30mg CAPSULE.DR PO SCH (07:09)
[2021-04-16] MEDS: memantine 5mg tablet PO SCH ×2 (07:09→19:05)
[2021-04-16] MEDS: pantoprazole 40mg Tablet.DR PO SCH (07:09)
[2021-04-16] MEDS: donepezil 5mg tablet PO SCH ×2 (07:09→19:03)
[2021-04-16] MEDS: amLODIPine 5mg tablet PO SCH (07:10)
[2021-04-16] MEDS: lisinopril 10 MG tablet PO SCH (07:10)
[2021-04-16] MEDS: HYDROcodone/acetaminophen 10/325mg tab PO PRN ×2 (07:13→21:15)
[2021-04-16] MEDS: docusate sod 100mg capsule PO SCH ×2 (08:00→19:03)
[2021-04-16] MEDS: ANORO ELLIPTA IH SCH (08:00)
[2021-04-16] MEDS: K and/or MAG REPLACEMENT MC SCH ×2 (08:00→19:05)
[2021-04-16 08:27] LABS: ALANINE AMINOTRANSFERASE 32 U/L (12-78); ALBUMIN 2.7 G/DL (3.4-5.0); ALBUMIN/GLOBULIN RATIO 0.9 (1.1-1.5); ALKALINE PHOSPHATASE 41 IU/L (46-116); ANION GAP 8 (8-16); ASPARTATE AMINO TRANSFERASE 27 U/L (10-37); BILIRUBIN,TOTAL 0.4 MG/DL (0.1-1.0); BLOOD UREA NITROGEN 24 MG/DL (7-18); BUN/CREATININE RATIO 31.6 (6.6-38.0); C-REACTIVE PROTEIN 6.31 MG/DL (0.0-0.5); CALCIUM 7.1 MG/DL (8.5-10.1); CHLORIDE 112 MMOL/L (99-107); CREATININE 0.76 MG/DL (0.40-0.90); GLUCOSE 184 MG/DL (70-104); LACTATE DEHYDROGENASE 309 U/L (81-234); PHOSPHORUS 2.1 MG/DL (2.3-4.5); POTASSIUM 3.6 MMOL/L (3.5-5.1); SODIUM 149 MMOL/L (135-145); TOTAL CARBON DIOXIDE 29.4 MMOL/L (24-32); TOTAL PROTEIN 5.8 G/DL (6.4-8.2); eGFR 74 ML/MIN
[2021-04-16 08:36] LABS: MAGNESIUM 2.5 MG/DL (1.5-2.4)
[2021-04-16 08:44] LABS: BASOPHILS % (AUTO) 0 % (0-1); EOSINOPHILS % (AUTO) 0 % (0-6); HEMATOCRIT 32.5 % (35.0-45.0); HEMOGLOBIN 10.6 g/dl (12.0-16.0); LYMPHOCYTES # (AUTO) 0.3 X10'3 (1.1-4.8); LYMPHOCYTES % (AUTO) 3.9 % (21-51); MEAN CORPUSCULAR HEMOGLOBIN 29.5 PG (27.0-31.0); MEAN CORPUSCULAR HGB CONC 32.5 g/dL (33.0-36.5); MEAN CORPUSCULAR VOLUME 90.9 FL (78-98); MONOCYTES # (AUTO) 0.2 X10'3 (0-0.9); MONOCYTES % (AUTO) 2.4 % (2-12); NEUTROPHILS # (AUTO) 7.2 X10'3 (1.8-7.7); NEUTROPHILS % (AUTO) 93.7 % (42-75); PLATELET COUNT 168 X10'3 (140-440); RED BLOOD COUNT 3.57 X10'6 (4.20-5.60); RED CELL DISTRIBUTION WIDTH 15.3 % (11.5-14.5); WHITE BLOOD COUNT 7.7 X10'3 (4.5-11.0)
[2021-04-16 08:58] LABS: D-DIMER 0.36 MG/L FEU (0-0.50)
[2021-04-16] MEDS: REMDESIVIR 100 MG in NS 100ml IVPB IV SCH (09:03)
[2021-04-16 10:00] VITALS: BP 115/50
[2021-04-16 14:00] VITALS: BP 114/55
[2021-04-16 18:00] VITALS: BP 143/74
--- NOTE | 2021-04-16 18:33 | NUR ---
Problems reprioritized. Patient report given, questions answered & plan of care reviewed with CHITO KRUEGER.
[2021-04-16] MEDS: temazepam 15mg capsule PO PRN (21:14)
[2021-04-16 22:00] VITALS: BP 150/54
--- NOTE | 2021-04-17 00:30 | NUR ---
Tele box called-reported that pts underlying rhythm is now back to sinus rhythm.
[2021-04-17] MEDS: HYDROcodone/acetaminophen 10/325mg tab PO PRN ×4 (01:13→20:08)
[2021-04-17 02:00] VITALS: BP 128/64
[2021-04-17] MEDS: normal saline 1000ml 1,000 ML IV SCH (02:00)
[2021-04-17] MEDS: acetaminophen 325mg tablet PO PRN (03:52)
[2021-04-17 06:00] VITALS: BP 147/71
--- NOTE | 2021-04-17 06:15 | NUR ---
Patient in room ORTHO 4010B. I have received report from CHITO KRUEGER and had the opportunity to ask questions and assume patient care.
[2021-04-17] MEDS: gabapentin 300mg capsule PO SCH ×2 (07:14→20:09)
[2021-04-17] MEDS: donepezil 5mg tablet PO SCH ×2 (07:14→20:09)
[2021-04-17] MEDS: memantine 5mg tablet PO SCH ×2 (07:14→20:09)
[2021-04-17] MEDS: clopidogrel 75mg tablet PO SCH (07:14)
[2021-04-17] MEDS: pantoprazole 40mg Tablet.DR PO SCH (07:14)
[2021-04-17] MEDS: levoTHYROXINE 25mcg tablet PO SCH (07:14)
[2021-04-17] MEDS: dicyclomine 10 MG capsule PO SCH (07:14)
[2021-04-17] MEDS: duloxetine 30mg CAPSULE.DR PO SCH (07:14)
[2021-04-17] MEDS: lisinopril 10 MG tablet PO SCH (07:15)
[2021-04-17] MEDS: lactobacillus rhamnosus 10,000 MMU CELLS/CAPSULE PO SCH (07:15)
[2021-04-17] MEDS: furosemide 20MG tablet PO SCH (07:15)
[2021-04-17] MEDS: busPIRone 5mg tablet PO SCH ×2 (07:15→20:09)
[2021-04-17] MEDS: amLODIPine 5mg tablet PO SCH (07:15)
[2021-04-17] MEDS: docusate sod 100mg capsule PO SCH ×2 (07:15→20:00)
[2021-04-17] MEDS: enoxaparin 40mg/0.4ml syringe SUBCUT SCH (07:25)
[2021-04-17] MEDS: dexamethasone inj 6 MG in normal saline 50ml IV soln 50 ML IV SCH ×2 (07:25→20:09)
[2021-04-17] MEDS: ANORO ELLIPTA IH SCH (08:00)
[2021-04-17] MEDS: K and/or MAG REPLACEMENT MC SCH ×2 (08:00→20:00)
[2021-04-17 08:03] LABS: BASOPHILS % (AUTO) 0.1 % (0-1); EOSINOPHILS % (AUTO) 0 % (0-6); HEMATOCRIT 33.1 % (35.0-45.0); HEMOGLOBIN 10.9 g/dl (12.0-16.0); LYMPHOCYTES # (AUTO) 0.4 X10'3 (1.1-4.8); LYMPHOCYTES % (AUTO) 5.6 % (21-51); MEAN CORPUSCULAR HEMOGLOBIN 29.5 PG (27.0-31.0); MEAN CORPUSCULAR HGB CONC 32.9 g/dL (33.0-36.5); MEAN CORPUSCULAR VOLUME 89.7 FL (78-98); MEAN PLATELET VOLUME 8.8 FL (7.4-10.4); MONOCYTES # (AUTO) 0.2 X10'3 (0-0.9); MONOCYTES % (AUTO) 3.6 % (2-12); NEUTROPHILS # (AUTO) 5.9 X10'3 (1.8-7.7); NEUTROPHILS % (AUTO) 90.7 % (42-75); PLATELET COUNT 212 X10'3 (140-440); RED BLOOD COUNT 3.68 X10'6 (4.20-5.60); RED CELL DISTRIBUTION WIDTH 15.4 % (11.5-14.5); WHITE BLOOD COUNT 6.5 X10'3 (4.5-11.0)
[2021-04-17 08:21] LABS: ALANINE AMINOTRANSFERASE 48 U/L (12-78); ALBUMIN 2.9 G/DL (3.4-5.0); ALBUMIN/GLOBULIN RATIO 0.9 (1.1-1.5); ALKALINE PHOSPHATASE 47 IU/L (46-116); ANION GAP 8 (8-16); ASPARTATE AMINO TRANSFERASE 26 U/L (10-37); BILIRUBIN,TOTAL 0.5 MG/DL (0.1-1.0); BLOOD UREA NITROGEN 22 MG/DL (7-18); BUN/CREATININE RATIO 30.1 (6.6-38.0); C-REACTIVE PROTEIN 4.28 MG/DL (0.0-0.5); CALCIUM 7.5 MG/DL (8.5-10.1); CHLORIDE 111 MMOL/L (99-107); CREATININE 0.73 MG/DL (0.40-0.90); GLUCOSE 190 MG/DL (70-104); LACTATE DEHYDROGENASE 347 U/L (81-234); MAGNESIUM 2.7 MG/DL (1.5-2.4); PHOSPHORUS 2.1 MG/DL (2.3-4.5); POTASSIUM 3.6 MMOL/L (3.5-5.1); SODIUM 150 MMOL/L (135-145); TOTAL CARBON DIOXIDE 31.2 MMOL/L (24-32); TOTAL PROTEIN 6.2 G/DL (6.4-8.2); eGFR 77 ML/MIN
[2021-04-17 08:51] LABS: D-DIMER 0.45 MG/L FEU (0-0.50)
[2021-04-17] MEDS: REMDESIVIR 100 MG in NS 100ml IVPB IV SCH (09:36)
[2021-04-17 10:00] VITALS: BP 148/61
[2021-04-17 14:00] VITALS: BP 152/57
[2021-04-17 18:00] VITALS: BP 178/77
--- NOTE | 2021-04-17 18:33 | NUR ---
Problems reprioritized. Patient report given, questions answered & plan of care reviewed with CHITO NAVARRETE.
--- NOTE | 2021-04-17 18:35 | NUR ---
Patient in room ORTHO 4010. I have received report from CHITO Taylor and had the opportunity to ask questions and assume patient care. Patient just finished dinner and is sleeping comfortably on hospital bed, I will continue to monitor.
--- NOTE | 2021-04-17 18:41 | NUR ---
Went into patient's room and found her personal med/inhaler on bedside table. I asked her if she had been using it and she said yes, I advised she cannot use her home meds at will and took the inhaler and placed it in med bin. Addendum: 04/17/21 at 8 by Janiya Avilez RN wrong patient.
[2021-04-17] MEDS: temazepam 15mg capsule PO PRN (22:43)
[2021-04-18 02:00] VITALS: BP 146/64
[2021-04-18 06:30] VITALS: BP 159/80
--- NOTE | 2021-04-18 06:49 | NUR ---
Problems reprioritized. Patient report given, questions answered & plan of care reviewed with CHITO Rios.
[2021-04-18] MEDS: dicyclomine 10 MG capsule PO SCH (07:20)
[2021-04-18] MEDS: donepezil 5mg tablet PO SCH ×2 (07:21→20:32)
[2021-04-18] MEDS: dexamethasone inj 6 MG in normal saline 50ml IV soln 50 ML IV SCH ×2 (07:21→20:32)
[2021-04-18] MEDS: gabapentin 300mg capsule PO SCH ×2 (07:21→20:32)
[2021-04-18] MEDS: levoTHYROXINE 25mcg tablet PO SCH (07:22)
[2021-04-18] MEDS: benzonatate 100mg capsule PO PRN ×2 (07:24→16:54)
[2021-04-18] MEDS: pantoprazole 40mg Tablet.DR PO SCH (07:25)
[2021-04-18] MEDS: lactobacillus rhamnosus 10,000 MMU CELLS/CAPSULE PO SCH (07:26)
[2021-04-18] MEDS: lisinopril 10 MG tablet PO SCH (07:26)
[2021-04-18] MEDS: docusate sod 100mg capsule PO SCH ×3 (07:27→20:32)
[2021-04-18] MEDS: amLODIPine 5mg tablet PO SCH (07:27)
[2021-04-18] MEDS: busPIRone 5mg tablet PO SCH ×2 (07:27→20:32)
[2021-04-18] MEDS: duloxetine 30mg CAPSULE.DR PO SCH (07:28)
[2021-04-18] MEDS: memantine 5mg tablet PO SCH ×2 (07:28→20:34)
[2021-04-18] MEDS: furosemide 20MG tablet PO SCH (07:28)
[2021-04-18] MEDS: ANORO ELLIPTA IH SCH (07:29)
[2021-04-18] MEDS: clopidogrel 75mg tablet PO SCH (07:29)
[2021-04-18] MEDS: K and/or MAG REPLACEMENT MC SCH ×2 (07:30→20:00)
[2021-04-18] MEDS: HYDROcodone/acetaminophen 10/325mg tab PO PRN ×2 (07:30→16:55)
[2021-04-18] MEDS: enoxaparin 40mg/0.4ml syringe SUBCUT SCH (07:32)
--- NOTE | 2021-04-18 07:49 | NUR ---
O2 Sat at rest on room air:__83_% If below 89%: Recovery O2 Sat at rest on __4_LPM:___%:__94_% via n/c (mask/nasal cannula, etc..) No further documentation is necessary. If O2 Sat did not drop below 89% on room air,ambulate patient on room air. O2 Sat while ambulating on room air:___% Recovery O2 Sat while ambulating on ___LPM:___% No further documentation is necessary. If patient does not drop below 89% while ambulating, he/she does not qualify for home O2.
[2021-04-18 08:37] LABS: BASOPHILS % (AUTO) 0 % (0-1); EOSINOPHILS % (AUTO) 0.1 % (0-6); HEMATOCRIT 34.7 % (35.0-45.0); HEMOGLOBIN 11.6 g/dl (12.0-16.0); LYMPHOCYTES # (AUTO) 0.5 X10'3 (1.1-4.8); MEAN CORPUSCULAR HEMOGLOBIN 29.6 PG (27.0-31.0); MEAN CORPUSCULAR HGB CONC 33.4 g/dL (33.0-36.5); MEAN CORPUSCULAR VOLUME 88.6 FL (78-98); MEAN PLATELET VOLUME 8.4 FL (7.4-10.4); MONOCYTES # (AUTO) 0.4 X10'3 (0-0.9); MONOCYTES % (AUTO) 6.1 % (2-12); NEUTROPHILS # (AUTO) 5.5 X10'3 (1.8-7.7); NEUTROPHILS % (AUTO) 85.8 % (42-75); PLATELET COUNT 249 X10'3 (140-440); RED BLOOD COUNT 3.92 X10'6 (4.20-5.60); RED CELL DISTRIBUTION WIDTH 15.5 % (11.5-14.5); WHITE BLOOD COUNT 6.4 X10'3 (4.5-11.0)
[2021-04-18 09:04] LABS: ALANINE AMINOTRANSFERASE 43 U/L (12-78); ALKALINE PHOSPHATASE 48 IU/L (46-116); ANION GAP 6 (8-16); ASPARTATE AMINO TRANSFERASE 14 U/L (10-37); BILIRUBIN,TOTAL 0.6 MG/DL (0.1-1.0); BLOOD UREA NITROGEN 19 MG/DL (7-18); BUN/CREATININE RATIO 26.8 (6.6-38.0); C-REACTIVE PROTEIN 2.76 MG/DL (0.0-0.5); CALCIUM 7.9 MG/DL (8.5-10.1); CHLORIDE 106 MMOL/L (99-107); CREATININE 0.71 MG/DL (0.40-0.90); GLUCOSE 182 MG/DL (70-104); LACTATE DEHYDROGENASE 320 U/L (81-234); MAGNESIUM 2.5 MG/DL (1.5-2.4); PHOSPHORUS 1.9 MG/DL (2.3-4.5); POTASSIUM 3.7 MMOL/L (3.5-5.1); SODIUM 148 MMOL/L (135-145); TOTAL CARBON DIOXIDE 35.9 MMOL/L (24-32); TOTAL PROTEIN 6.1 G/DL (6.4-8.2); eGFR 80 ML/MIN
[2021-04-18 09:56] LABS: D-DIMER 0.56 MG/L FEU (0-0.50)
[2021-04-18 10:00] VITALS: BP 151/53
--- NOTE | 2021-04-18 10:34 | NUR ---
Initial: Pt admit DX COVID-19, PNA, PR, COPD, hypernatremia, and dementia per EMR. Na 148 this AM w/ NS stopped 04/17 per EMR. Pt PO 50% avg regular diet just shy of meeting needs; will send smoothies TIDWM for ease of PO and additional kcals/protein. Dietary notified. No documented BM since 04/14 however diarrhea also documented 04/16; receiving routine colace. IF true constipation would benefit from additional bowel care per MD discretion. Noted Phos 1.9 this AM; RD d/w RN regarding replacement if MD agreeable. Will continue to monitor. Rec: 1. continue regular diet; encourage PO 2. smoothie TIDWM for ease of PO and additional kcals 3. routine bowel care 4. scaled wt this admit; subsequent weekly wts Addendum: 04/18/21 at [address] Amended: Links added.
--- NOTE | 2021-04-18 15:04 | NUR ---
PAGER ID: [phone] MESSAGE: Penny Vieyra 4010B replace 1.9 phos? Mag 2.5 ok to give MOM? Or may I have suppository order. No BM x 4 days. Glucoses over 160 consecutively- hyperglycemia protocol? Blanca [id number]
--- NOTE | 2021-04-18 16:04 | NUR ---
Hospitalist does not want accuchecks at this time.
[2021-04-18] MEDS ORDERED: bisacodyl 10mg suppository rectal RC PRN (16:05)
[2021-04-18] MEDS: Neutra Phos packet PO PRN ×2 (16:54→20:32)
[2021-04-18 18:00] VITALS: BP 151/49
--- NOTE | 2021-04-18 18:13 | NUR ---
Problems reprioritized. Patient report given, questions answered & plan of care reviewed with Robyn DALE.
[2021-04-18] MEDS: temazepam 15mg capsule PO PRN ×2 (20:32→22:27)
[2021-04-18 22:00] VITALS: BP 148/50
[2021-04-19 02:00] VITALS: BP 178/64
--- NOTE | 2021-04-19 06:26 | NUR ---
reported to days. noted pt resting w/o distress. anticipate discharge home today if sats stable with activity
[2021-04-19 06:42] VITALS: BP 172/74
[2021-04-19] MEDS: dexamethasone inj 6 MG in normal saline 50ml IV soln 50 ML IV SCH (07:25)
[2021-04-19] MEDS: docusate sod 100mg capsule PO SCH (07:26)
[2021-04-19] MEDS: lactobacillus rhamnosus 10,000 MMU CELLS/CAPSULE PO SCH (07:26)
[2021-04-19] MEDS: donepezil 5mg tablet PO SCH (07:26)
[2021-04-19] MEDS: duloxetine 30mg CAPSULE.DR PO SCH (07:26)
[2021-04-19] MEDS: memantine 5mg tablet PO SCH (07:26)
[2021-04-19] MEDS: dicyclomine 10 MG capsule PO SCH (07:26)
[2021-04-19] MEDS: enoxaparin 40mg/0.4ml syringe SUBCUT SCH (07:26)
[2021-04-19] MEDS: pantoprazole 40mg Tablet.DR PO SCH (07:27)
[2021-04-19] MEDS: amLODIPine 5mg tablet PO SCH (07:27)
[2021-04-19] MEDS: gabapentin 300mg capsule PO SCH (07:27)
[2021-04-19] MEDS: levoTHYROXINE 25mcg tablet PO SCH (07:27)
[2021-04-19] MEDS: lisinopril 10 MG tablet PO SCH (07:27)
[2021-04-19] MEDS: busPIRone 5mg tablet PO SCH (07:27)
[2021-04-19] MEDS: clopidogrel 75mg tablet PO SCH (07:28)
[2021-04-19] MEDS: furosemide 20MG tablet PO SCH (07:28)
[2021-04-19] MEDS: HYDROcodone/acetaminophen 10/325mg tab PO PRN (07:29)
[2021-04-19] MEDS: ANORO ELLIPTA IH SCH (08:00)
[2021-04-19] MEDS: K and/or MAG REPLACEMENT MC SCH (08:00)
[2021-04-19 08:58] LABS: BASOPHILS % (AUTO) 0.1 % (0-1); EOSINOPHILS % (AUTO) 0.1 % (0-6); HEMATOCRIT 35.2 % (35.0-45.0); HEMOGLOBIN 11.7 g/dl (12.0-16.0); LYMPHOCYTES # (AUTO) 0.4 X10'3 (1.1-4.8); MEAN CORPUSCULAR HEMOGLOBIN 29.7 PG (27.0-31.0); MEAN CORPUSCULAR HGB CONC 33.4 g/dL (33.0-36.5); MEAN PLATELET VOLUME 8.4 FL (7.4-10.4); MONOCYTES # (AUTO) 0.4 X10'3 (0-0.9); MONOCYTES % (AUTO) 5.6 % (2-12); NEUTROPHILS # (AUTO) 6.3 X10'3 (1.8-7.7); NEUTROPHILS % (AUTO) 88.2 % (42-75); PLATELET COUNT 271 X10'3 (140-440); RED BLOOD COUNT 3.96 X10'6 (4.20-5.60); RED CELL DISTRIBUTION WIDTH 15.3 % (11.5-14.5); WHITE BLOOD COUNT 7.2 X10'3 (4.5-11.0)
[2021-04-19 09:31] LABS: ALANINE AMINOTRANSFERASE 37 U/L (12-78); ALBUMIN 3.1 G/DL (3.4-5.0); ALBUMIN/GLOBULIN RATIO 1.1 (1.1-1.5); ALKALINE PHOSPHATASE 43 IU/L (46-116); ANION GAP 5 (8-16); ASPARTATE AMINO TRANSFERASE 14 U/L (10-37); BILIRUBIN,TOTAL 0.9 MG/DL (0.1-1.0); BLOOD UREA NITROGEN 15 MG/DL (7-18); C-REACTIVE PROTEIN 1.76 MG/DL (0.0-0.5); CALCIUM 8.2 MG/DL (8.5-10.1); CHLORIDE 102 MMOL/L (99-107); CREATININE 0.79 MG/DL (0.40-0.90); GLUCOSE 228 MG/DL (70-104); LACTATE DEHYDROGENASE 344 U/L (81-234); MAGNESIUM 2.4 MG/DL (1.5-2.4); PHOSPHORUS 2.4 MG/DL (2.3-4.5); POTASSIUM 3.7 MMOL/L (3.5-5.1); SODIUM 144 MMOL/L (135-145); TOTAL CARBON DIOXIDE 37.5 MMOL/L (24-32); TOTAL PROTEIN 5.9 G/DL (6.4-8.2); eGFR 71 ML/MIN
[2021-04-19 09:33] LABS: D-DIMER 0.61 MG/L FEU (0-0.50)
[2021-04-19 10:13] VITALS: BP 141/43
[2021-04-19] MEDS ORDERED: DEXA4TAB67 PO (11:47)
[2021-04-19] MEDS ORDERED: HYDR-3965 PO (11:48)
[2021-04-19] MEDS ORDERED: ZOLP6.2539 PO (11:48)
--- NOTE | 2021-04-19 14:21 | NUR ---
Patient discharged to home, discharge instructions given and 18 gauge PIV removed from right ac, dressing applied. Patient was discharged to private vehicle with son and portable oxygen. No complications.
== END 2021-04-19 13:40 | disposition home or self-care (01) | DRG 177 ==
LOC: ER 14:32 → EDBD 14:32 → ED HOLD 18:07 → EDBEDREQ 04-14 18:13 → ORTHO 4S 04-14 18:45
PROVIDERS: ADMIT Family Medicine; ATTEND Family Medicine
PROC: XW033E5 Introduction of Remdesivir Anti-infective into Peripheral Vein, Percutaneous Approach, New Technology Group 5 (ICD-10-PCS; principal; 2021-04-13)
PROC: B32T1ZZ Computerized Tomography (CT Scan) of Left Pulmonary Artery using Low Osmolar Contrast (ICD-10-PCS; 2021-04-13)
PROC: B3201ZZ Computerized Tomography (CT Scan) of Thoracic Aorta using Low Osmolar Contrast (ICD-10-PCS; 2021-04-13)
PROC: B32S1ZZ Computerized Tomography (CT Scan) of Right Pulmonary Artery using Low Osmolar Contrast (ICD-10-PCS; 2021-04-13)
DX: U07.1 COVID-19 (principal); J12.82 Pneumonia due to coronavirus disease 2019; J96.01 Acute respiratory failure with hypoxia; I21.A1 Myocardial infarction type 2; E87.0 Hyperosmolality and hypernatremia; E03.9 Hypothyroidism, unspecified; I12.9 Hypertensive chronic kidney disease with stage 1 through stage 4 chronic kidney disease, or unspecified chronic kidney disease; F03.90 Unspecified dementia, unspecified severity, without behavioral disturbance, psychotic disturbance, mood disturbance, and anxiety; E78.5 Hyperlipidemia, unspecified; G47.33 Obstructive sleep apnea (adult) (pediatric); G89.29 Other chronic pain; I49.5 Sick sinus syndrome; T38.0X5A Adverse effect of glucocorticoids and synthetic analogues, initial encounter; M54.9 Dorsalgia, unspecified; R51.9 Headache, unspecified; J43.9 Emphysema, unspecified; N18.9 Chronic kidney disease, unspecified; Z86.718 Personal history of other venous thrombosis and embolism; Z95.0 Presence of cardiac pacemaker; Z99.81 Dependence on supplemental oxygen; Y92.89 Other specified places as the place of occurrence of the external cause; Z88.0 Allergy status to penicillin; Z88.5 Allergy status to narcotic agent; Z88.8 Allergy status to other drugs, medicaments and biological substances; Z87.440 Personal history of urinary (tract) infections; Z90.49 Acquired absence of other specified parts of digestive tract
CPT/HCPCS: 36415; 70450; 71045; 71275; 80053; 81001; 83605; 83615; 83735; 84100; 84145; 84443; 84484; 85025; 85379; 86140; 87040; 87081; 93005; 93306; 97110; 97116; 97161; 97530; 99285; G0378; J1100; J1650; J1956; J2405; J7030; M0243; Q0244; Q9967

== ENCOUNTER 2021-06-22 14:41 | Emergency (ER) | payer MEDICARE, MEDICAID ==
[~2021-06-22] VITALS: Ht 157.5 cm; Wt 82.3 kg
[~2021-06-22 14:41] MED LIST changes: +ACET-1084 PO; -CEPH-585 PO; +CHOL4PAC2 PO; +CHOL500050 PO; +CRAN450T4 PO; +DEXA4TAB67 PO; -DICY20TA11 PO; +DICY20TA2 PO; -DONE10TA44 PO; +FURO20TA4 PO; -OXYC-150 PO; +POLY17PO59 PO; +ZOLP6.2539 PO
[2021-06-22 15:27] VITALS: BP 134/40
[2021-06-22 16:09] LABS: BASOPHILS # (AUTO) 0.1 X10'3 (0-0.2); BASOPHILS % (AUTO) 0.9 % (0-1); EOSINOPHILS # (AUTO) 0.2 X10'3 (0-0.9); EOSINOPHILS % (AUTO) 2.8 % (0-6); HEMOGLOBIN 11.2 g/dl (12.0-16.0); LYMPHOCYTES # (AUTO) 1.5 X10'3 (1.1-4.8); LYMPHOCYTES % (AUTO) 19.8 % (21-51); MEAN CORPUSCULAR HEMOGLOBIN 29.5 PG (27.0-31.0); MEAN CORPUSCULAR VOLUME 89.4 FL (78-98); MEAN PLATELET VOLUME 7.8 FL (7.4-10.4); MONOCYTES # (AUTO) 0.8 X10'3 (0-0.9); MONOCYTES % (AUTO) 10.4 % (2-12); NEUTROPHILS # (AUTO) 4.9 X10'3 (1.8-7.7); NEUTROPHILS % (AUTO) 66.1 % (42-75); PLATELET COUNT 275 X10'3 (140-440); RED CELL DISTRIBUTION WIDTH 15.8 % (11.5-14.5); WHITE BLOOD COUNT 7.5 X10'3 (4.5-11.0)
[2021-06-22 16:21] LABS: ALANINE AMINOTRANSFERASE 28 U/L (12-78); ALBUMIN 3.7 G/DL (3.4-5.0); ALBUMIN/GLOBULIN RATIO 1.2 (1.1-1.5); ALKALINE PHOSPHATASE 73 IU/L (46-116); ANION GAP 3 (8-16); ASPARTATE AMINO TRANSFERASE 14 U/L (10-37); BILIRUBIN,TOTAL 0.3 MG/DL (0.1-1.0); BLOOD UREA NITROGEN 20 MG/DL (7-18); BUN/CREATININE RATIO 14.2 (6.6-38.0); CALCIUM 9.2 MG/DL (8.5-10.1); CHLORIDE 101 MMOL/L (99-107); CREATININE 1.41 MG/DL (0.40-0.90); GLUCOSE 104 MG/DL (70-104); LIPASE 104 U/L (73-393); POTASSIUM 3.4 MMOL/L (3.5-5.1); SODIUM 139 MMOL/L (135-145); TOTAL CARBON DIOXIDE 35.3 MMOL/L (24-32); TOTAL PROTEIN 6.7 G/DL (6.4-8.2); eGFR 36 ML/MIN
[2021-06-25] MEDS ORDERED: LIDOcaine 2% 5ml jelly ONE (09:11)
== END 2021-06-22 23:17 | disposition home or self-care (01) ==
LOC: ER 14:41
DX: Z13.89 Encounter for screening for other disorder (principal); R11.10 Vomiting, unspecified; I10 Essential (primary) hypertension; J43.9 Emphysema, unspecified; G89.29 Other chronic pain; Z87.01 Personal history of pneumonia (recurrent); Z87.440 Personal history of urinary (tract) infections; Z90.49 Acquired absence of other specified parts of digestive tract; Z95.0 Presence of cardiac pacemaker; Z72.89 Other problems related to lifestyle; Z88.0 Allergy status to penicillin; Z88.5 Allergy status to narcotic agent; Z88.8 Allergy status to other drugs, medicaments and biological substances; Z79.899 Other long term (current) drug therapy
CPT/HCPCS: 36415; 80053; 83690; 85025; 99283

== ENCOUNTER 2021-06-28 05:50 | Emergency (ER) | payer MEDICARE, MEDICAID ==
[~2021-06-28] VITALS: Ht 154.9 cm; Wt 82.0 kg
[2021-06-28] MEDS ORDERED: amLODIPine 5mg tablet PO STA (06:54)
[2021-06-28] MEDS ORDERED: lisinopril 10 MG tablet PO STA (06:54)
--- NOTE | 2021-06-28 07:01 | NUR ---
spoke to Dr. Tran regarding patient's bp,ok'd to admin patient's home meds lisinopril 40mg and amlodipine 10mg.
[2021-06-28 07:54] VITALS: BP 148/47
--- NOTE | 2021-06-28 07:54 | NUR ---
Bp meds held, rechecked bp 148/47.
--- NOTE | 2021-06-28 07:54 | NUR ---
BP checked manually 148/47.
[2021-06-28] MEDS ORDERED: benztropine 1mg tablet PO STA (11:14)
[2021-06-28] MEDS ORDERED: diphenhydrAMINE 25mg capsule PO ONE (11:15)
[2021-06-28] MEDS ORDERED: LORazepam 1 MG tablet PO ONE (11:15)
[2021-06-28 11:52] LABS: BASOPHILS # (AUTO) 0.1 X10'3 (0-0.2); BASOPHILS % (AUTO) 0.8 % (0-1); EOSINOPHILS # (AUTO) 0.2 X10'3 (0-0.9); EOSINOPHILS % (AUTO) 2.3 % (0-6); HEMATOCRIT 34.7 % (35.0-45.0); HEMOGLOBIN 11.3 g/dl (12.0-16.0); LYMPHOCYTES # (AUTO) 1.8 X10'3 (1.1-4.8); LYMPHOCYTES % (AUTO) 21.7 % (21-51); MEAN CORPUSCULAR HGB CONC 32.5 g/dL (33.0-36.5); MEAN CORPUSCULAR VOLUME 89.4 FL (78-98); MEAN PLATELET VOLUME 7.6 FL (7.4-10.4); MONOCYTES # (AUTO) 0.7 X10'3 (0-0.9); MONOCYTES % (AUTO) 8.7 % (2-12); NEUTROPHILS # (AUTO) 5.5 X10'3 (1.8-7.7); NEUTROPHILS % (AUTO) 66.5 % (42-75); PLATELET COUNT 320 X10'3 (140-440); RED BLOOD COUNT 3.88 X10'6 (4.20-5.60); RED CELL DISTRIBUTION WIDTH 16.2 % (11.5-14.5); WHITE BLOOD COUNT 8.3 X10'3 (4.5-11.0)
[2021-06-28 12:01] LABS: ALANINE AMINOTRANSFERASE 18 U/L (12-78); ALBUMIN 3.5 G/DL (3.4-5.0); ALBUMIN/GLOBULIN RATIO 1.1 (1.1-1.5); ALKALINE PHOSPHATASE 60 IU/L (46-116); ANION GAP 4 (8-16); ASPARTATE AMINO TRANSFERASE 15 U/L (10-37); BILIRUBIN,TOTAL 0.4 MG/DL (0.1-1.0); BLOOD UREA NITROGEN 16 MG/DL (7-18); BUN/CREATININE RATIO 14.2 (6.6-38.0); CALCIUM 8.4 MG/DL (8.5-10.1); CHLORIDE 102 MMOL/L (99-107); CREATININE 1.13 MG/DL (0.40-0.90); GLUCOSE 107 MG/DL (70-104); POTASSIUM 3.3 MMOL/L (3.5-5.1); SODIUM 144 MMOL/L (135-145); TOTAL CARBON DIOXIDE 37.7 MMOL/L (24-32); TOTAL PROTEIN 6.7 G/DL (6.4-8.2); eGFR 47 ML/MIN
[2021-06-28] MEDS ORDERED: BENZ1TAB7 PO (12:45)
== END 2021-06-28 13:08 | disposition home or self-care (01) ==
LOC: ER 05:50
DX: G25.2 Other specified forms of tremor (principal); R42 Dizziness and giddiness; I10 Essential (primary) hypertension; J43.9 Emphysema, unspecified; G89.29 Other chronic pain; Z87.01 Personal history of pneumonia (recurrent); Z87.440 Personal history of urinary (tract) infections; Z90.49 Acquired absence of other specified parts of digestive tract; Z95.0 Presence of cardiac pacemaker; Z72.89 Other problems related to lifestyle; Z88.0 Allergy status to penicillin; Z88.5 Allergy status to narcotic agent; Z88.8 Allergy status to other drugs, medicaments and biological substances; Z79.899 Other long term (current) drug therapy
CPT/HCPCS: 36415; 70450; 71045; 80053; 85025; 93005; 99285; Q0163

== ENCOUNTER 2021-07-12 00:45 | Emergency (ER) | payer MEDICARE, MEDICAID ==
[~2021-07-12] VITALS: Ht 154.9 cm; Wt 82.3 kg
[2021-07-12] MEDS ORDERED: magnesium 2GM in 50ml NS 50 ML IV ONE (03:50)
[2021-07-12] MEDS ORDERED: normal saline 1000ML IV soln IVB ONE (03:50)
[2021-07-12 04:01] LABS: BASOPHILS # (AUTO) 0.1 X10'3 (0-0.2); BASOPHILS % (AUTO) 0.9 % (0-1); EOSINOPHILS # (AUTO) 0.1 X10'3 (0-0.9); EOSINOPHILS % (AUTO) 1.1 % (0-6); HEMATOCRIT 34.6 % (35.0-45.0); HEMOGLOBIN 11.4 g/dl (12.0-16.0); LYMPHOCYTES # (AUTO) 1.8 X10'3 (1.1-4.8); LYMPHOCYTES % (AUTO) 27.7 % (21-51); MEAN CORPUSCULAR HEMOGLOBIN 29.2 PG (27.0-31.0); MEAN CORPUSCULAR HGB CONC 32.8 g/dL (33.0-36.5); MEAN CORPUSCULAR VOLUME 88.8 FL (78-98); MONOCYTES # (AUTO) 0.6 X10'3 (0-0.9); MONOCYTES % (AUTO) 8.9 % (2-12); NEUTROPHILS # (AUTO) 4.1 X10'3 (1.8-7.7); NEUTROPHILS % (AUTO) 61.4 % (42-75); PLATELET COUNT 206 X10'3 (140-440); WHITE BLOOD COUNT 6.6 X10'3 (4.5-11.0)
[2021-07-12 04:17] LABS: ALANINE AMINOTRANSFERASE 14 U/L (12-78); ALBUMIN 3.5 G/DL (3.4-5.0); ALBUMIN/GLOBULIN RATIO 1.3 (1.1-1.5); ALKALINE PHOSPHATASE 55 IU/L (46-116); ANION GAP 5 (8-16); ASPARTATE AMINO TRANSFERASE 22 U/L (10-37); BILIRUBIN,TOTAL 0.6 MG/DL (0.1-1.0); BLOOD UREA NITROGEN 13 MG/DL (7-18); BUN/CREATININE RATIO 11.8 (6.6-38.0); CALCIUM 8.6 MG/DL (8.5-10.1); CHLORIDE 105 MMOL/L (99-107); GLUCOSE 88 MG/DL (70-104); POTASSIUM 3.6 MMOL/L (3.5-5.1); SODIUM 144 MMOL/L (135-145); TOTAL CARBON DIOXIDE 33.7 MMOL/L (24-32); TOTAL PROTEIN 6.3 G/DL (6.4-8.2); eGFR 48 ML/MIN
[2021-07-12] MEDS ORDERED: LORazepam 2 mg/ml vial IV ONE (04:25)
[2021-07-12 08:29] VITALS: BP 111/65
== END 2021-07-12 08:30 | disposition home or self-care (01) ==
LOC: ER 00:45
DX: R25.1 Tremor, unspecified (principal); E86.0 Dehydration; I10 Essential (primary) hypertension; J43.9 Emphysema, unspecified; G89.29 Other chronic pain; Z87.01 Personal history of pneumonia (recurrent); Z87.440 Personal history of urinary (tract) infections; Z90.49 Acquired absence of other specified parts of digestive tract; Z95.0 Presence of cardiac pacemaker; Z72.89 Other problems related to lifestyle; Z88.0 Allergy status to penicillin; Z88.5 Allergy status to narcotic agent; Z88.8 Allergy status to other drugs, medicaments and biological substances; Z79.899 Other long term (current) drug therapy
CPT/HCPCS: 36415; 80053; 85025; 93005; 96365; 96366; 96375; 99285; J2060; J3475; J7030

== ENCOUNTER 2021-07-20 10:39 | Outpatient (CLI) | payer MEDICARE, MEDICAID | END 2021-07-20 23:59 | disposition home or self-care (01) | LOC: RAD 10:39 | PROVIDERS: ATTEND Psychiatry & Neurology Neurology | DX: R94.01 Abnormal electroencephalogram [EEG] (principal); G25.3 Myoclonus | CPT/HCPCS: 95816 ==

== ENCOUNTER 2021-11-08 13:31 | Inpatient (IN) | payer MEDICARE, MEDICAID ==
[~2021-11-08] VITALS: Ht 165.1 cm; Wt 59.1 kg
[~2021-11-08 13:31] MED LIST changes: -ACET-1084 PO; -AMLO5TAB PO; -BUDE0.5A3 NEB; -CHOL4PAC2 PO; -DEXA4TAB67 PO; +DEXL60CA3 PO; -DICY20TA2 PO; -LISI10TA PO; +LISI5TAB22 PO; -LOPE2CAP PO; -PANT-47 PO; -POLY17PO59 PO; +TRAM50TA2 PO; -ZOLP6.2539 PO; -[UNRECOGNIZED DRUG - CODE] PO
[2021-11-08 14:06] LABS: BASOPHILS # (AUTO) 0.1 X10'3 (0-0.2); BASOPHILS % (AUTO) 0.9 % (0-1); EOSINOPHILS % (AUTO) 0.4 % (0-6); HEMATOCRIT 26.4 % (35.0-45.0); HEMOGLOBIN 8.1 g/dl (12.0-16.0); LYMPHOCYTES # (AUTO) 0.7 X10'3 (1.1-4.8); LYMPHOCYTES % (AUTO) 9.8 % (21-51); MEAN CORPUSCULAR HEMOGLOBIN 24.2 PG (27.0-31.0); MEAN CORPUSCULAR HGB CONC 30.7 g/dL (33.0-36.5); MEAN CORPUSCULAR VOLUME 78.7 FL (78-98); MONOCYTES # (AUTO) 0.6 X10'3 (0-0.9); MONOCYTES % (AUTO) 8.4 % (2-12); NEUTROPHILS # (AUTO) 5.6 X10'3 (1.8-7.7); NEUTROPHILS % (AUTO) 80.5 % (42-75); PLATELET COUNT 252 X10'3 (140-440); RED BLOOD COUNT 3.35 X10'6 (4.20-5.60); RED CELL DISTRIBUTION WIDTH 18.5 % (11.5-14.5); WHITE BLOOD COUNT 6.9 X10'3 (4.5-11.0)
[2021-11-08 14:25] LABS: ALANINE AMINOTRANSFERASE 10 U/L (12-78); ALBUMIN/GLOBULIN RATIO 1.1 (1.1-1.5); ALKALINE PHOSPHATASE 60 IU/L (46-116); ANION GAP 5 (8-16); ASPARTATE AMINO TRANSFERASE 14 U/L (10-37); BILIRUBIN,TOTAL 0.4 MG/DL (0.1-1.0); BLOOD UREA NITROGEN 15 MG/DL (7-18); BUN/CREATININE RATIO 15.2 (6.6-38.0); CALCIUM 8.5 MG/DL (8.5-10.1); CHLORIDE 104 MMOL/L (99-107); CREATININE 0.99 MG/DL (0.40-0.90); GLUCOSE 112 MG/DL (70-104); POTASSIUM 3.7 MMOL/L (3.5-5.1); SODIUM 144 MMOL/L (135-145); TOTAL CARBON DIOXIDE 34.8 MMOL/L (24-32); TOTAL PROTEIN 5.8 G/DL (6.4-8.2); eGFR 54 ML/MIN
[2021-11-08 15:00] LABS: CLARITY,URINE SLIGHTLY CLOUDY (Clear); COLOR,URINE YELLOW (Yellow); GLUCOSE, URINE NEGATIVE (Neg); KETONES,URINE NEGATIVE (Neg); LEUKOCYTE ESTERASE ,URINE NEGATIVE (Neg); NITRITES, URINE NEGATIVE (Neg); OCCULT BLOOD,URINE NEGATIVE (Neg); PROTEIN,URINE NEGATIVE (Neg); UROBILINOGEN,URINE 0.2 E.U/dL (0.2-1.0)
[2021-11-08 15:06] LABS: UA COLLECTION TYPE STRAIGHT CATH
[2021-11-08 15:07] LABS: BACTERIA,URINE 1+ /HPF (Neg); MUCUS STRANDS MANY /LPF (Neg); RBC,URINE 0-2 /HPF (0-2); SQUAMOUS EPITHELIAL CELL,UR MODERATE /LPF (FEW)
[2021-11-08 15:08] LABS: WBC,URINE 0-4 /HPF (0-4)
--- NOTE | 2021-11-08 17:18 | NUR ---
PT BACK FROM CT
[2021-11-08] MEDS ORDERED: magnesium 2GM in 50ml NS 50 ML IV PRN (18:05)
[2021-11-08] MEDS ORDERED: acetaminophen 325mg tablet PO PRN ×2 (18:05)
[2021-11-08] MEDS ORDERED: ondansetron/PF 4mg/2ml inj IV PRN (18:05)
[2021-11-08] MEDS ORDERED: potassium CL 10mEq/100ml bag 100 ML IV PRN (18:05)
[2021-11-08] MEDS ORDERED: magnesium hydroxide 30ml (MOM) UD suspension PO PRN (18:05)
[2021-11-08] MEDS: normal saline 1000ml 1,000 ML IV SCH (18:05)
[2021-11-08] MEDS ORDERED: POTASSIUM BICARB 20meq eff tab 20 MEQ TABLET.EFF PO PRN ×2 (18:05)
[2021-11-08] MEDS ORDERED: magnesium Cl slow-release 64mg tablet PO PRN (18:05)
[2021-11-08] MEDS ORDERED: magnesium 4gm in 100ml NS 100 ML IV PRN (18:05)
[2021-11-08] MEDS ORDERED: TEMA15CA PO (18:17)
[2021-11-08] MEDS ORDERED: ALBUTEROL INHALER 1 PUFF/90 MCG INHALER IH PRN (19:15)
[2021-11-08] MEDS: K and/or MAG REPLACEMENT MC SCH (20:00)
[2021-11-08] MEDS ORDERED: pantoprazole 40mg Tablet.DR PO SCH ×2 (20:00)
[2021-11-08] MEDS ORDERED: heparin, porcine 5000 units/ml vial SQ SCH (20:00)
[2021-11-08 20:24] LABS: CLARITY,URINE SLIGHTLY CLOUDY (Clear); COLOR,URINE YELLOW (Yellow); GLUCOSE, URINE NEGATIVE (Neg); KETONES,URINE NEGATIVE (Neg); LEUKOCYTE ESTERASE ,URINE NEGATIVE (Neg); NITRITES, URINE NEGATIVE (Neg); OCCULT BLOOD,URINE SMALL (Neg); PH,URINE 6.5 (4.8-8.0); PROTEIN,URINE TRACE mg/dl (Neg); UROBILINOGEN,URINE 0.2 E.U/dL (0.2-1.0)
[2021-11-08 20:31] LABS: UA COLLECTION TYPE URINAL
[2021-11-08 20:32] LABS: BACTERIA,URINE 1+ /HPF (Neg); MUCUS STRANDS FEW /LPF (Neg); SQUAMOUS EPITHELIAL CELL,UR MODERATE /LPF (FEW)
[2021-11-08] MEDS: albuterol 2.5 MG/3 ML nebule NEB SCH (20:50)
[2021-11-08] MEDS: ipratropium 0.5 MG/2.5ML nebule IH SCH (20:50)
[2021-11-08] MEDS ORDERED: temazepam 15mg capsule PO PRN (21:00)
[2021-11-08] MEDS ORDERED: atorvastatin 20mg tablet PO SCH (21:00)
[2021-11-08] MEDS: busPIRone 5mg tablet PO SCH (22:43)
[2021-11-08] MEDS: memantine 5mg tablet PO SCH (22:43)
--- NOTE | 2021-11-08 22:44 | NUR ---
Patient in room ED 15. I have received report from alfredito and had the opportunity to ask questions. Waiting for patient arrival.
--- NOTE | 2021-11-08 23:00 | NUR ---
RECEIVED PT FROM ER VIA [facility], ASSUMED PT CARE WITH CRISTOFER GARDNER. PT ORIENTED TO ROOM AND ROUTINE. Addendum: 11/09/21 at 0340 by Gonzalo Cedillo RN Amended: Links added.
[2021-11-09 02:00] VITALS: BP 134/44
[2021-11-09] MEDS: ipratropium 0.5 MG/2.5ML nebule IH SCH ×2 (02:58→08:34)
[2021-11-09] MEDS: albuterol 2.5 MG/3 ML nebule NEB SCH ×2 (02:58→08:34)
--- NOTE | 2021-11-09 06:20 | NUR ---
Patient in room PCU 3024. I have received report from CHITO Tan and had the opportunity to ask questions and assume patient care.
[2021-11-09 06:30] VITALS: BP 117/46
--- NOTE | 2021-11-09 06:31 | NUR ---
Problems reprioritized. Patient report given, questions answered & plan of care reviewed with qasim.
[2021-11-09 07:01] LABS: BASOPHILS # (AUTO) 0.1 X10'3 (0-0.2); BASOPHILS % (AUTO) 1.3 % (0-1); EOSINOPHILS # (AUTO) 0.1 X10'3 (0-0.9); EOSINOPHILS % (AUTO) 1.5 % (0-6); HEMATOCRIT 24.9 % (35.0-45.0); HEMOGLOBIN 7.9 g/dl (12.0-16.0); LYMPHOCYTES # (AUTO) 1.1 X10'3 (1.1-4.8); LYMPHOCYTES % (AUTO) 24.3 % (21-51); MEAN CORPUSCULAR HGB CONC 31.5 g/dL (33.0-36.5); MEAN CORPUSCULAR VOLUME 79.2 FL (78-98); MEAN PLATELET VOLUME 8.3 FL (7.4-10.4); MONOCYTES # (AUTO) 0.4 X10'3 (0-0.9); MONOCYTES % (AUTO) 9.6 % (2-12); NEUTROPHILS # (AUTO) 2.9 X10'3 (1.8-7.7); NEUTROPHILS % (AUTO) 63.3 % (42-75); PLATELET COUNT 218 X10'3 (140-440); RED BLOOD COUNT 3.15 X10'6 (4.20-5.60); RED CELL DISTRIBUTION WIDTH 18.2 % (11.5-14.5); WHITE BLOOD COUNT 4.5 X10'3 (4.5-11.0)
[2021-11-09 07:19] LABS: ALANINE AMINOTRANSFERASE 11 U/L (12-78); ALBUMIN 2.6 G/DL (3.4-5.0); ALKALINE PHOSPHATASE 49 IU/L (46-116); ANION GAP 6 (8-16); ASPARTATE AMINO TRANSFERASE 11 U/L (10-37); BILIRUBIN,TOTAL 0.4 MG/DL (0.1-1.0); BLOOD UREA NITROGEN 13 MG/DL (7-18); BUN/CREATININE RATIO 14.8 (6.6-38.0); CALCIUM 7.9 MG/DL (8.5-10.1); CHLORIDE 107 MMOL/L (99-107); CREATININE 0.88 MG/DL (0.40-0.90); GLUCOSE 85 MG/DL (70-104); POTASSIUM 3.3 MMOL/L (3.5-5.1); SODIUM 145 MMOL/L (135-145); TOTAL PROTEIN 5.1 G/DL (6.4-8.2); eGFR 62 ML/MIN
[2021-11-09] MEDS ORDERED: pantoprazole 40mg Tablet.DR PO SCH (07:30)
[2021-11-09] MEDS ORDERED: predniSONE 5mg tablet PO SCH (08:00)
[2021-11-09] MEDS ORDERED: magnesium oxide 400mg tablet PO SCH (08:00)
[2021-11-09] MEDS ORDERED: furosemide 20MG tablet PO SCH (08:00)
[2021-11-09] MEDS ORDERED: clopidogrel 75mg tablet PO SCH (08:00)
[2021-11-09] MEDS ORDERED: levoTHYROXINE 25mcg tablet PO SCH (08:00)
[2021-11-09] MEDS ORDERED: lactobacillus rhamnosus 10,000 MMU CELLS/CAPSULE PO SCH (08:00)
[2021-11-09] MEDS ORDERED: lisinopril 5mg tablet PO SCH (08:00)
[2021-11-09] MEDS: normal saline 1000ml 1,000 ML IV SCH (08:23)
[2021-11-09] MEDS: K and/or MAG REPLACEMENT MC SCH (08:23)
[2021-11-09] MEDS ORDERED: ipratropium/albuterol 3ml nebule NEB SCH (09:00)
[2021-11-09] MEDS: memantine 5mg tablet PO SCH (10:46)
[2021-11-09] MEDS: busPIRone 5mg tablet PO SCH (10:47)
[2021-11-09 11:00] VITALS: BP 146/52
--- NOTE | 2021-11-09 14:40 | NUR ---
Transfer to [facility] [place] via [facility] ambulance transport. IV DC'd, tip intact. Daughter took all belongings.
== END 2021-11-09 14:43 | DRG 884 ==
LOC: ER 13:31 → ED HOLD 18:08 → PCU 3S 23:00
PROVIDERS: ADMIT Internal Medicine; ATTEND Internal Medicine
DX: R40.4 Transient alteration of awareness (principal); F03.90 Unspecified dementia, unspecified severity, without behavioral disturbance, psychotic disturbance, mood disturbance, and anxiety; D64.9 Anemia, unspecified; E78.00 Pure hypercholesterolemia, unspecified; E78.5 Hyperlipidemia, unspecified; G89.29 Other chronic pain; I11.0 Hypertensive heart disease with heart failure; I48.91 Unspecified atrial fibrillation; M54.9 Dorsalgia, unspecified; R40.0 Somnolence; T50.995A Adverse effect of other drugs, medicaments and biological substances, initial encounter; I50.9 Heart failure, unspecified; J43.9 Emphysema, unspecified; Z86.73 Personal history of transient ischemic attack (TIA), and cerebral infarction without residual deficits; Z87.891 Personal history of nicotine dependence; Z95.0 Presence of cardiac pacemaker; Z99.81 Dependence on supplemental oxygen; Z79.02 Long term (current) use of antithrombotics/antiplatelets; Z88.0 Allergy status to penicillin; Z88.5 Allergy status to narcotic agent; Z88.8 Allergy status to other drugs, medicaments and biological substances; Z90.49 Acquired absence of other specified parts of digestive tract; Z87.440 Personal history of urinary (tract) infections; Y92.009 Unspecified place in unspecified non-institutional (private) residence as the place of occurrence of the external cause
CPT/HCPCS: 36415; 70450; 71045; 80053; 81001; 83605; 84443; 85025; 87040; 87081; 87088; 93005; 94640; 94760; 97116; 97161; 97530; 99285; G0378; J7030; J7512